=== PATIENT | female | born 1975 | race Caucasian/White ===

== ENCOUNTER 2023-07-24 11:50 | Emergency (ER) | payer BC, OTHER ==
[~2023-07-24] VITALS: Ht 165.1 cm; Wt 144.2 kg
[2023-07-24 12:06] VITALS: BP 187/130; PULSE 98; RESP 14; TEMP 98.3; O2SAT 97
[2023-07-24 12:52] LABS: BASOPHILS % (AUTO) 0.3 % (0-1); EOSINOPHILS # (AUTO) 0.2 X10'3 (0-0.9); EOSINOPHILS % (AUTO) 1.9 % (0-6); HEMATOCRIT 37.5 % (35.0-45.0); LYMPHOCYTES % (AUTO) 20.3 % (21-51); MEAN CORPUSCULAR HEMOGLOBIN 25.2 PG (27.0-31.0); MEAN CORPUSCULAR HGB CONC 31.9 g/dL (33.0-36.5); MEAN CORPUSCULAR VOLUME 78.8 FL (78-98); MEAN PLATELET VOLUME 8.1 FL (7.4-10.4); MONOCYTES # (AUTO) 0.6 X10'3 (0-0.9); MONOCYTES % (AUTO) 5.8 % (2-12); NEUTROPHILS # (AUTO) 7.2 X10'3 (1.8-7.7); NEUTROPHILS % (AUTO) 71.7 % (42-75); PLATELET COUNT 353 X10'3 (140-440); RED BLOOD COUNT 4.75 X10'6 (4.20-5.60)
[2023-07-24 13:07] LABS: ALANINE AMINOTRANSFERASE 15 U/L (12-78); ALBUMIN 3.2 G/DL (3.4-5.0); ALBUMIN/GLOBULIN RATIO 0.7 (1.1-1.5); ALKALINE PHOSPHATASE 76 IU/L (46-116); ANION GAP 7 (8-16); ASPARTATE AMINO TRANSFERASE 13 U/L (10-37); BILIRUBIN,TOTAL 0.4 MG/DL (0.1-1.0); BLOOD UREA NITROGEN 9 MG/DL (7-18); BUN/CREATININE RATIO 11.1 (10.0-20.0); CHLORIDE 105 MMOL/L (99-107); CREATININE 0.81 MG/DL (0.40-0.90); GLUCOSE 97 MG/DL (70-104); LIPASE 22 U/L (16-77); POTASSIUM 4.2 MMOL/L (3.5-5.1); SODIUM 139 MMOL/L (135-145); TOTAL CARBON DIOXIDE 27.3 MMOL/L (24-32); TOTAL PROTEIN 7.6 G/DL (6.4-8.2); eCRCL 78 ML/MIN; eGFR 76 ML/MIN
[2023-07-24 13:17] LABS: URINE HCG NEGATIVE (NEG)
[2023-07-24 13:18] LABS: BILIRUBIN,URINE NEGATIVE (Neg); CLARITY,URINE SLIGHTLY CLOUDY (Clear); COLOR,URINE YELLOW (Yellow); GLUCOSE, URINE NEGATIVE (Neg); KETONES,URINE NEGATIVE (Neg); LEUKOCYTE ESTERASE ,URINE TRACE (Neg); NITRITES, URINE NEGATIVE (Neg); OCCULT BLOOD,URINE TRACE-INTACT (Neg); PH,URINE 6.5 (4.8-8.0); PROTEIN,URINE TRACE mg/dl (Neg)
[2023-07-24 13:27] LABS: UA COLLECTION TYPE CLN CATCH MIDSTREAM
[2023-07-24 13:42] LABS: RBC,URINE 0-2 /HPF (0-2); WBC,URINE 0-4 /HPF (0-4)
[2023-07-24 13:43] LABS: SQUAMOUS EPITHELIAL CELL,UR MANY /LPF (FEW); TRANSITIONAL EPI CELLS,URINE FEW /HPF
[2023-07-24 13:47] LABS: MUCUS STRANDS FEW /LPF (Neg)
[2023-07-24 13:48] LABS: BACTERIA,URINE 1+ /HPF (Neg)
== END 2023-07-24 15:12 | disposition home or self-care (01) ==
LOC: ER 11:50
DX: K42.9 Umbilical hernia without obstruction or gangrene (principal)
CPT/HCPCS: 36415; 74176; 80053; 81001; 81025; 83690; 85025; 99284

== ENCOUNTER 2023-09-09 21:41 | Inpatient (IN) | payer BC, OTHER ==
[~2023-09-09] VITALS: Ht 165.1 cm; Wt 145.4 kg
[2023-09-09] MEDS: HYDROmorphone 1 mg/ml syringe IV ONE (22:15)
[2023-09-09] MEDS: normal saline 1000ml 1,000 ML IV ONE (22:16)
[2023-09-09] MEDS: ondansetron/PF 4mg/2ml inj IV ONE (22:16)
[2023-09-09 22:30] LABS: BASOPHILS % (AUTO) 0.2 % (0-1); EOSINOPHILS % (AUTO) 0.1 % (0-6); HEMATOCRIT 38.7 % (35.0-45.0); HEMOGLOBIN 12.3 g/dl (12.0-16.0); LYMPHOCYTES # (AUTO) 1.4 X10'3 (1.1-4.8); LYMPHOCYTES % (AUTO) 6.9 % (21-51); MEAN CORPUSCULAR HGB CONC 31.7 g/dL (33.0-36.5); MEAN CORPUSCULAR VOLUME 78.7 FL (78-98); MEAN PLATELET VOLUME 8.1 FL (7.4-10.4); MONOCYTES # (AUTO) 1.1 X10'3 (0-0.9); MONOCYTES % (AUTO) 5.6 % (2-12); NEUTROPHILS # (AUTO) 17.7 X10'3 (1.8-7.7); NEUTROPHILS % (AUTO) 87.2 % (42-75); PLATELET COUNT 305 X10'3 (140-440); RED BLOOD COUNT 4.92 X10'6 (4.20-5.60); WHITE BLOOD COUNT 20.4 X10'3 (4.5-11.0)
[2023-09-09 22:52] LABS: ALANINE AMINOTRANSFERASE 65 U/L (12-78); ALBUMIN/GLOBULIN RATIO 0.6 (1.1-1.5); ALKALINE PHOSPHATASE 136 IU/L (46-116); ANION GAP 12 (8-16); ASPARTATE AMINO TRANSFERASE 44 U/L (10-37); BILIRUBIN,TOTAL 1.1 MG/DL (0.1-1.0); BLOOD UREA NITROGEN 9 MG/DL (7-18); BUN/CREATININE RATIO 7.8 (10.0-20.0); CALCIUM 9.3 MG/DL (8.5-10.1); CHLORIDE 101 MMOL/L (99-107); CREATININE 1.16 MG/DL (0.40-0.90); GLUCOSE 105 MG/DL (70-104); LIPASE 12 U/L (16-77); POTASSIUM 3.5 MMOL/L (3.5-5.1); SODIUM 138 MMOL/L (135-145); TOTAL CARBON DIOXIDE 25.3 MMOL/L (24-32); TOTAL PROTEIN 8.2 G/DL (6.4-8.2); eCRCL 55 ML/MIN; eGFR 50 ML/MIN
[2023-09-09] MEDS ORDERED: iohexol 300mg/ml 100ml inj. ONE (23:29)
[2023-09-09] MEDS: LORazepam 2 mg/ml vial IV ONE (23:49)
[2023-09-10] MEDS: normal saline 1000ml 1,000 ML IV ONE (00:38)
[2023-09-10] MEDS: piperacillin/tazo 3.375gm/50ml 50 ML IV SCH (00:39)
[2023-09-10 01:00] LABS: BILIRUBIN,URINE SMALL (Neg); CLARITY,URINE CLOUDY (Clear); COLOR,URINE YELLOW (Yellow); GLUCOSE, URINE NEGATIVE (Neg); KETONES,URINE TRACE mg/dl (Neg); LEUKOCYTE ESTERASE ,URINE MODERATE (Neg); NITRITES, URINE POSITIVE (Neg); OCCULT BLOOD,URINE LARGE (Neg); PROTEIN,URINE 100 mg/dl (Neg)
[2023-09-10 01:02] LABS: UA COLLECTION TYPE CLN CATCH MIDSTREAM
[2023-09-10 01:11] LABS: SQUAMOUS EPITHELIAL CELL,UR MODERATE /LPF (FEW)
[2023-09-10 01:12] LABS: BACTERIA,URINE 2+ /HPF (Neg); RBC,URINE TNTC /HPF (0-2); WBC,URINE TNTC /HPF (0-4)
[2023-09-10] MEDS: metoprolol tartrate 1mg/ml inj IV ONE (01:45)
[2023-09-10] MEDS ORDERED: HYDROcodone/acetaminophen 5mg/325mg tablet PO PRN (02:25)
[2023-09-10] MEDS ORDERED: magnesium sulf-water 4G/100mL 100 ML IV PRN (02:25)
[2023-09-10] MEDS ORDERED: methylPREDNISolone sod succ 125mg/2ml vial IV ONE (02:25)
[2023-09-10] MEDS ORDERED: magnesium hydroxide 30ml (MOM) UD suspension PO PRN (02:25)
[2023-09-10] MEDS ORDERED: mag hydrox/Alum hydrox/simeth 30ml oral suspension PO PRN (02:25)
[2023-09-10] MEDS ORDERED: magnesium sulf-water 2g/50mL 50 ML IV PRN (02:25)
[2023-09-10] MEDS ORDERED: HYDROmorphone/PF 0.2 MG/ML SYRINGE IV PRN (02:25)
[2023-09-10] MEDS ORDERED: magnesium Cl slow-release 64mg tablet PO PRN (02:25)
[2023-09-10] MEDS: normal saline 1000ml 1,000 ML IV SCH (03:16)
[2023-09-10] MEDS: morphine 4 MG/ML inj SYRINge IV ONE (03:16)
[2023-09-10] MEDS: labetalol 20mg/4ml (5mg/ml) syringe IV ONE (03:24)
[2023-09-10] MEDS: pantoprazole 40 MG vial IV SCH (03:24)
[2023-09-10] MEDS: potassium Cl 20 mEq SR tablet PO PRN (04:05)
[2023-09-10 04:24] LABS: URINE AMPHETAMINE SCREEN NEGATIVE (Neg); URINE BARBITUATE SCREEN NEGATIVE (Neg); URINE BENZODIAZEPINES SCREEN NEGATIVE (Neg); URINE CANNABINOID SCREEN NEGATIVE (Neg); URINE COCAINE SCREEN NEGATIVE (Neg); URINE METHADONE SCREEN NEGATIVE (Neg); URINE OPIATE SCREEN POSITIVE (Neg); URINE PHENCYCLIDINE SCREEN NEGATIVE (Neg)
[2023-09-10 06:05] VITALS: BP 131/72; PULSE 85; RESP 22; TEMP 100; O2SAT 96
[2023-09-10] MEDS ORDERED: methylPREDNISolone sod succ 125mg/2ml vial IV SCH (08:00)
[2023-09-10] MEDS: K and/or MAG REPLACEMENT MC SCH (08:00)
[2023-09-10] MEDS: CefTRIAXone/D5W-Rocephin 1gm 50 ML IV SCH (08:44)
[2023-09-10] MEDS: azithromycin/NS 500mg/250ml 250 ML IV SCH (08:44)
[2023-09-10] MEDS: bisacodyl 10mg suppository rectal RC STA (10:46)
[2023-09-10] MEDS: potassium Cl 40MEQ/1/2NS 520ml 520 ML IV PRN (10:46)
[2023-09-10] MEDS: ondansetron/PF 4mg/2ml inj IV PRN (10:48)
[2023-09-10 11:00] VITALS: BP 135/75; PULSE 66; RESP 11; TEMP 98.8; O2SAT 96
[2023-09-10] MEDS: acetaminophen 325mg tablet PO PRN (11:01)
[2023-09-10] MEDS ORDERED: FOLI0.4T14 PO (11:36)
[2023-09-10] MEDS ORDERED: CARV12.5 PO (11:36)
[2023-09-10] MEDS ORDERED: METH2.5T PO (11:36)
[2023-09-10 14:11] LABS: BASOPHILS # (AUTO) 0.1 X10'3 (0-0.2); BASOPHILS % (AUTO) 0.3 % (0-1); EOSINOPHILS # (AUTO) 0.1 X10'3 (0-0.9); EOSINOPHILS % (AUTO) 0.3 % (0-6); HEMATOCRIT 33.9 % (35.0-45.0); HEMOGLOBIN 10.7 g/dl (12.0-16.0); LYMPHOCYTES # (AUTO) 1.4 X10'3 (1.1-4.8); LYMPHOCYTES % (AUTO) 6.8 % (21-51); MEAN CORPUSCULAR HEMOGLOBIN 24.6 PG (27.0-31.0); MEAN CORPUSCULAR HGB CONC 31.7 g/dL (33.0-36.5); MEAN CORPUSCULAR VOLUME 77.6 FL (78-98); MEAN PLATELET VOLUME 7.9 FL (7.4-10.4); MONOCYTES # (AUTO) 1.6 X10'3 (0-0.9); MONOCYTES % (AUTO) 7.9 % (2-12); NEUTROPHILS # (AUTO) 17.5 X10'3 (1.8-7.7); NEUTROPHILS % (AUTO) 84.7 % (42-75); PLATELET COUNT 241 X10'3 (140-440); RED BLOOD COUNT 4.37 X10'6 (4.20-5.60); RED CELL DISTRIBUTION WIDTH 15.9 % (11.5-14.5); WHITE BLOOD COUNT 20.6 X10'3 (4.5-11.0)
[2023-09-10 15:00] VITALS: BP 134/59; PULSE 106; RESP 13; TEMP 98.6; O2SAT 99
[2023-09-10] MEDS: HYDROmorphone inj. 0.5 MG/0.5 ML DISP.SYRIN IV PRN (16:38)
[2023-09-10 18:00] VITALS: BP 155/96; PULSE 101; RESP 14; TEMP 100.3; O2SAT 96
[2023-09-10] MEDS: carvedilol 6.25mg tablet PO SCH (19:43)
[2023-09-10] MEDS: polyethylene glycol 3350 17gm powd pack PO SCH (19:44)
[2023-09-10 20:00] VITALS: RESP 14; O2SAT 96
[2023-09-10] MEDS ORDERED: carVEDilol 12.5mg tablet PO SCH (20:00)
[2023-09-10 22:00] VITALS: BP 170/98; PULSE 105; RESP 22; TEMP 101.5; O2SAT 99
[2023-09-10] MEDS: HYDROcodone/acetaminophen 10/325mg tab PO PRN (22:45)
[2023-09-11] VITALS (8 sets, daily range): BP systolic 127–173; BP diastolic 81–108; PULSE 96–116; RESP 15–29; TEMP 97.4–102.1; O2SAT 94–99
[2023-09-11] MEDS: acetaminophen 325mg tablet PO PRN (03:00)
[2023-09-11 06:50] LABS: BASOPHILS % (AUTO) 0.2 % (0-1); EOSINOPHILS % (AUTO) 0.2 % (0-6); HEMATOCRIT 32.4 % (35.0-45.0); HEMOGLOBIN 10.2 g/dl (12.0-16.0); LYMPHOCYTES # (AUTO) 1.8 X10'3 (1.1-4.8); LYMPHOCYTES % (AUTO) 11.2 % (21-51); MEAN CORPUSCULAR HEMOGLOBIN 24.4 PG (27.0-31.0); MEAN CORPUSCULAR HGB CONC 31.4 g/dL (33.0-36.5); MEAN CORPUSCULAR VOLUME 77.8 FL (78-98); MONOCYTES # (AUTO) 1.4 X10'3 (0-0.9); MONOCYTES % (AUTO) 8.8 % (2-12); NEUTROPHILS # (AUTO) 12.6 X10'3 (1.8-7.7); NEUTROPHILS % (AUTO) 79.6 % (42-75); PLATELET COUNT 238 X10'3 (140-440); RED BLOOD COUNT 4.16 X10'6 (4.20-5.60); RED CELL DISTRIBUTION WIDTH 16.3 % (11.5-14.5); WHITE BLOOD COUNT 15.8 X10'3 (4.5-11.0)
[2023-09-11 07:05] LABS: APTT 33 SECONDS (22-32); INR 1.2 INR; PROTHROMBIN TIME 12.2 SECONDS (9.0-12.0)
[2023-09-11 07:15] LABS: ALANINE AMINOTRANSFERASE 79 U/L (12-78); ALBUMIN 2.4 G/DL (3.4-5.0); ALBUMIN/GLOBULIN RATIO 0.6 (1.1-1.5); ALKALINE PHOSPHATASE 157 IU/L (46-116); ANION GAP 11 (8-16); ASPARTATE AMINO TRANSFERASE 43 U/L (10-37); BILIRUBIN,TOTAL 0.7 MG/DL (0.1-1.0); BLOOD UREA NITROGEN 8 MG/DL (7-18); BUN/CREATININE RATIO 7.8 (10.0-20.0); CALCIUM 8.7 MG/DL (8.5-10.1); CHLORIDE 104 MMOL/L (99-107); CREATININE 1.03 MG/DL (0.40-0.90); GLUCOSE 91 MG/DL (70-104); MAGNESIUM 1.8 MG/DL (1.5-2.4); PHOSPHORUS 3.2 MG/DL (2.3-4.5); POTASSIUM 3.5 MMOL/L (3.5-5.1); SODIUM 137 MMOL/L (135-145); TOTAL CARBON DIOXIDE 22.3 MMOL/L (24-32); TOTAL PROTEIN 6.7 G/DL (6.4-8.2); eCRCL 61 ML/MIN; eGFR 58 ML/MIN
[2023-09-11] MEDS ORDERED: folic acid 1mg tablet PO SCH (08:00)
[2023-09-11] MEDS ORDERED: HYDROmorphone/PF 0.2 MG/ML SYRINGE IV PRN (08:40)
[2023-09-11] MEDS: metoclopramide 10mg tablet PO PRN (10:14)
[2023-09-11] MEDS: HYDROmorphone inj. 0.5 MG/0.5 ML DISP.SYRIN IV PRN (17:44)
[2023-09-12] VITALS (7 sets, daily range): BP systolic 137–165; BP diastolic 87–98; PULSE 89–100; RESP 12–25; TEMP 97.6–100.8; O2SAT 93–98
[2023-09-12 06:37] LABS: BASOPHILS % (AUTO) 0.3 % (0-1); EOSINOPHILS # (AUTO) 0.1 X10'3 (0-0.9); EOSINOPHILS % (AUTO) 0.6 % (0-6); HEMATOCRIT 31.7 % (35.0-45.0); HEMOGLOBIN 10.1 g/dl (12.0-16.0); LYMPHOCYTES # (AUTO) 1.9 X10'3 (1.1-4.8); LYMPHOCYTES % (AUTO) 16.9 % (21-51); MEAN CORPUSCULAR HEMOGLOBIN 24.7 PG (27.0-31.0); MEAN CORPUSCULAR HGB CONC 31.7 g/dL (33.0-36.5); MEAN CORPUSCULAR VOLUME 77.8 FL (78-98); MEAN PLATELET VOLUME 8.2 FL (7.4-10.4); MONOCYTES # (AUTO) 1.4 X10'3 (0-0.9); MONOCYTES % (AUTO) 12.1 % (2-12); NEUTROPHILS % (AUTO) 70.1 % (42-75); PLATELET COUNT 266 X10'3 (140-440); RED BLOOD COUNT 4.08 X10'6 (4.20-5.60); RED CELL DISTRIBUTION WIDTH 15.8 % (11.5-14.5); WHITE BLOOD COUNT 11.5 X10'3 (4.5-11.0)
[2023-09-12 06:49] LABS: APTT 32 SECONDS (22-32); INR 1.1 INR; PROTHROMBIN TIME 11.8 SECONDS (9.0-12.0)
[2023-09-12 06:54] LABS: ALANINE AMINOTRANSFERASE 69 U/L (12-78); ALBUMIN 2.3 G/DL (3.4-5.0); ALBUMIN/GLOBULIN RATIO 0.5 (1.1-1.5); ALKALINE PHOSPHATASE 132 IU/L (46-116); ANION GAP 12 (8-16); ASPARTATE AMINO TRANSFERASE 38 U/L (10-37); BILIRUBIN,TOTAL 0.5 MG/DL (0.1-1.0); BLOOD UREA NITROGEN 7 MG/DL (7-18); CALCIUM 8.8 MG/DL (8.5-10.1); CHLORIDE 104 MMOL/L (99-107); GLUCOSE 89 MG/DL (70-104); MAGNESIUM 1.9 MG/DL (1.5-2.4); PHOSPHORUS 3.6 MG/DL (2.3-4.5); POTASSIUM 3.2 MMOL/L (3.5-5.1); SODIUM 138 MMOL/L (135-145); TOTAL CARBON DIOXIDE 22.4 MMOL/L (24-32); TOTAL PROTEIN 6.9 G/DL (6.4-8.2); eCRCL 63 ML/MIN; eGFR 60 ML/MIN
[2023-09-12] MEDS: potassium Cl 20 mEq SR tablet PO PRN (08:18)
[2023-09-12] MEDS: lactose-reduced food (Ensure Enlive) - 237ml bottle PO SCH (13:10)
[2023-09-12] MEDS ORDERED: iohexol 300mg/ml 100ml inj. ONE (20:42)
[2023-09-13 02:00] VITALS: BP 153/88; PULSE 92; RESP 21; TEMP 97.7; O2SAT 97
[2023-09-13 07:12] VITALS: BP 172/91; PULSE 94; RESP 14; TEMP 97.5; O2SAT 97
[2023-09-13 07:43] LABS: BASOPHILS % (AUTO) 0.5 % (0-1); EOSINOPHILS # (AUTO) 0.2 X10'3 (0-0.9); EOSINOPHILS % (AUTO) 1.7 % (0-6); HEMATOCRIT 30.3 % (35.0-45.0); HEMOGLOBIN 9.8 g/dl (12.0-16.0); LYMPHOCYTES # (AUTO) 1.6 X10'3 (1.1-4.8); LYMPHOCYTES % (AUTO) 17.2 % (21-51); MEAN CORPUSCULAR HEMOGLOBIN 25.1 PG (27.0-31.0); MEAN CORPUSCULAR HGB CONC 32.4 g/dL (33.0-36.5); MEAN CORPUSCULAR VOLUME 77.5 FL (78-98); MEAN PLATELET VOLUME 8.4 FL (7.4-10.4); MONOCYTES # (AUTO) 1.3 X10'3 (0-0.9); MONOCYTES % (AUTO) 14.1 % (2-12); NEUTROPHILS # (AUTO) 6.3 X10'3 (1.8-7.7); NEUTROPHILS % (AUTO) 66.5 % (42-75); PLATELET COUNT 292 X10'3 (140-440); RED BLOOD COUNT 3.91 X10'6 (4.20-5.60); RED CELL DISTRIBUTION WIDTH 16.2 % (11.5-14.5); WHITE BLOOD COUNT 9.4 X10'3 (4.5-11.0)
[2023-09-13 07:53] LABS: APTT 30 SECONDS (22-32); INR 1.1 INR; PROTHROMBIN TIME 11.5 SECONDS (9.0-12.0)
[2023-09-13 08:00] VITALS: RESP 14; O2SAT 97
[2023-09-13 08:07] LABS: ALANINE AMINOTRANSFERASE 84 U/L (12-78); ALBUMIN 2.2 G/DL (3.4-5.0); ALBUMIN/GLOBULIN RATIO 0.5 (1.1-1.5); ALKALINE PHOSPHATASE 171 IU/L (46-116); ANION GAP 10 (8-16); ASPARTATE AMINO TRANSFERASE 55 U/L (10-37); BILIRUBIN,TOTAL 0.4 MG/DL (0.1-1.0); BLOOD UREA NITROGEN 5 MG/DL (7-18); BUN/CREATININE RATIO 5.3 (10.0-20.0); CALCIUM 8.8 MG/DL (8.5-10.1); CHLORIDE 105 MMOL/L (99-107); CREATININE 0.94 MG/DL (0.40-0.90); GLUCOSE 85 MG/DL (70-104); PHOSPHORUS 3.9 MG/DL (2.3-4.5); POTASSIUM 3.4 MMOL/L (3.5-5.1); SODIUM 140 MMOL/L (135-145); TOTAL PROTEIN 6.8 G/DL (6.4-8.2); eCRCL 67 ML/MIN; eGFR 64 ML/MIN
[2023-09-13 09:34] VITALS: RESP 14; O2SAT 97
[2023-09-13] MEDS ORDERED: ONDA-243 PO (10:00)
[2023-09-13] MEDS ORDERED: CIPR-259 PO (10:00)
[2023-09-13] MEDS ORDERED: AMLO5TAB16 PO (10:07)
[2023-09-13] MEDS ORDERED: LISI10TA27 PO (10:07)
[2023-09-13 11:06] LABS: ALBUMIN 2.4 G/DL (3.4-5.0); ANION GAP 8 (8-16); BLOOD UREA NITROGEN 5 MG/DL (7-18); BUN/CREATININE RATIO 5.1 (10.0-20.0); CALCIUM 8.8 MG/DL (8.5-10.1); CHLORIDE 105 MMOL/L (99-107); CREATININE 0.98 MG/DL (0.40-0.90); GLUCOSE 114 MG/DL (70-104); POTASSIUM 3.4 MMOL/L (3.5-5.1); SODIUM 139 MMOL/L (135-145); TOTAL CARBON DIOXIDE 26.3 MMOL/L (24-32); eCRCL 65 ML/MIN; eGFR 61 ML/MIN
[2023-09-13 12:08] VITALS: BP 148/89; PULSE 85; RESP 13; TEMP 98.7; O2SAT 97
[2023-09-13] MEDS: potassium chloride 10mEq ER tablet PO ONE (12:33)
[2023-09-16] MEDS ORDERED: methoTREXATE 2.5mg tablet PO SCH ×2 (07:00)
== END 2023-09-13 13:56 | disposition home or self-care (01) | DRG 871 ==
LOC: ER 21:42 → ED HOLD 09-10 02:24 → PCU 3S 09-10 05:38
PROVIDERS: ADMIT Surgery; ATTEND Internal Medicine
PROC: BW211ZZ Computerized Tomography (CT Scan) of Abdomen and Pelvis using Low Osmolar Contrast (ICD-10-PCS; principal; 2023-09-09)
PROC: BW241ZZ Computerized Tomography (CT Scan) of Chest and Abdomen using Low Osmolar Contrast (ICD-10-PCS; 2023-09-12)
DX: A41.9 Sepsis, unspecified organism (principal); J18.9 Pneumonia, unspecified organism; J96.01 Acute respiratory failure with hypoxia; N39.0 Urinary tract infection, site not specified; I16.0 Hypertensive urgency; Z20.822 Contact with and (suspected) exposure to COVID-19; I10 Essential (primary) hypertension; E87.6 Hypokalemia; D86.89 Sarcoidosis of other sites; Z90.49 Acquired absence of other specified parts of digestive tract
CPT/HCPCS: 36415; 71045; 71260; 74018; 74177; 80048; 80053; 80305; 81001; 83605; 83690; 83735; 84100; 84132; 84145; 84484; 85025; 85610; 85651; 85730; 87040; 87077; 87081; 87088; 87186; 87502; 87503; 87811; 93005; 93306; 97161; 97530; 99291; G0378; J0456; J0696; J1170; J2060; J2270; J2405; J2470; J2543; J3480; J3490; J7030; Q9967

== ENCOUNTER 2025-01-08 09:05 | Outpatient (CLI) | payer BC, OTHER ==
[~2025-01-08 09:05] MED LIST: AMLO5TAB16 PO; CARV12.5 PO; FOLI0.4T3 PO; LISI10TA27 PO; METH2.5T PO; ONDA-243 PO
--- NOTE | 2025-01-08 11:22 | RADIOLOGY REPORT ---
INDICATION: EPIGASTRIC PAIN TECHNIQUE: Multiple real-time sonographic images were obtained of the right upper quadrant. COMPARISON: DI ABDOMEN,SINGLE VIEW(KUB) on DOS: 09/13/23, CT CT ABDOMEN PELVIS on DOS: 09/09/23, CT CT ABDOMEN PELVIS on DOS: 07/24/23 FINDINGS: The liver demonstrates homogeneous echotexture without focal mass lesions. The liver measures 20 cm. There is no intrahepatic or extrahepatic ductal dilatation. The common duct measures 0.4 cm. Post cholecystectomy. The right kidney measures 11.2 cm. The right kidney is normal in contour, size, and shape. The echogenicity is normal. There is no hydronephrosis. The pancreas is not well visualized due to overlying bowel gas. IMPRESSION: Hepatomegaly. Post cholecystectomy.
== END 2025-01-08 23:59 | disposition home or self-care (01) ==
LOC: RAD 09:05
PROVIDERS: ATTEND Internal Medicine
DX: R16.0 Hepatomegaly, not elsewhere classified (principal); R10.13 Epigastric pain; Z90.49 Acquired absence of other specified parts of digestive tract
CPT/HCPCS: 76700

== ENCOUNTER 2025-01-29 06:07 | Day surgery (SDC) | payer BC, OTHER ==
[~2025-01-29] VITALS: Ht 165.1 cm; Wt 148.3 kg
[2025-01-29] VITALS (7 sets, daily range): BP systolic 114–125; BP diastolic 61–73; PULSE 74–88; RESP 14–18; TEMP 97.9; O2SAT 94–100
[~2025-01-29 06:07] MED LIST changes: +AMLO5TAB PO; -AMLO5TAB16 PO; +CARV-50 PO; -CARV12.5 PO; +DOCUMENT DATE & TIME OF BETA-BLOCKER PO ONE; -FOLI0.4T3 PO; +FOLI1TAB27 PO; -LISI10TA27 PO; +OLME40TA70 PO; -ONDA-243 PO; +ringers solution, lacted 1,000 ML IV SCH
--- NOTE | 2025-01-29 06:46 | ELECTROCARDIOGRAPH REPORT ---
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 Evan Damon Measurements Intervals [place] Rate: 80 P: 52 CT: 179 QRS: 15 QRSD: 92 T: 32 QT: 384 QTc: 443 Interpretive Statements Sinus rhythm Low voltage, precordial leads Electronically Signed On 01-29-2025 6:56:[address] Evan Damon Please click the below link to view image of tracing.
[2025-01-29] MEDS ORDERED: MIDAZolam 1 MG/ML 5ML VIAL ONE ×2 (07:41→09:11)
[2025-01-29] MEDS ORDERED: fentaNYL/PF 50MCG/1 ML 2ML syringe ONE ×2 (07:42→09:11)
[2025-01-29] MEDS ORDERED: LIDOcaine 2% Viscous 15ml cup ONE (08:17)
[2025-01-29] MEDS ORDERED: ondansetron/PF 4mg/2ml inj ONE (08:44)
== END 2025-01-29 10:25 | disposition home or self-care (01) ==
LOC: PAS 06:07
PROVIDERS: ATTEND Internal Medicine Gastroenterology
DX: R19.4 Change in bowel habit (principal); R10.85 Abdominal pain of multiple sites; K30 Functional dyspepsia; K31.89 Other diseases of stomach and duodenum; I10 Essential (primary) hypertension; E66.01 Morbid (severe) obesity due to excess calories; G47.33 Obstructive sleep apnea (adult) (pediatric); Z79.899 Other long term (current) drug therapy; Z90.49 Acquired absence of other specified parts of digestive tract; Z98.51 Tubal ligation status; Z98.890 Other specified postprocedural states; Z68.43 Body mass index [BMI] 50.0-59.9, adult
CPT/HCPCS: 43239; 45378; 82948; 93005; J2250; J2405; J3010; J7120; Z7512; 99152